=== PATIENT | male | born 1975 | race Caucasian/White ===

== ENCOUNTER 2020-09-27 06:58 | Emergency (ER) | payer SELFPAY ==
[2020-09-27 06:55] VITALS: BP 140/85; TEMP 35.8
--- NOTE | 2020-09-27 07:29 | ED.CPR ---
HPI - CPR General Chief Complaint: Cardiac Arrest/CPR Stated Complaint: cardiac arrest Time Seen by Provider: 09/27/20 07:20 Source: family () and EMS Mode of arrival: EMS Limitations: clinical condition History of Present Illness HPI narrative: This patient is a 45 male with history of DM, leukemia who presents in cardiac arrest. His states she woke up at approximately 6:13 am this morning to find patient gasping for air. She reports he seems to shake his leg once and she asked if she should call 911. She states he shook his head no and then he was shaking again and he gasped for air again. He became unresponsive so she called 911. She started CPR. On EMS arrival, patient was found to be in VFib and he was shocked once and then he was in PEA. On my arrival patient, I took over care of patient. It was reported patient had received 4 doses of epi by EMS and he had received 1 dose of epi in ER. He was intubated by EMS in the field. complaint: stopped breathing Onset (ago): minute(s) (45) Time: 06:13 Timing confirmed by: spouse Place: home Bystander CPR performed: Yes Shock advised: Yes Number of shocks delivered: 1 Initial findings in the field: no pulse and VTACH/VFIB ROSC in the field: No Associated injuries: No Known history of: cancer (leukemia) Treatments prior to arrival: intubation, BMV, chest compressions, defibrillated shocks # (1) and epinephrine mgs # (4) Related Data Home Medications Medication Instructions Recorded Confirmed Unable to Obtain Home Medications 09/27/20 09/27/20 Allergies Allergy/AdvReac Type Severity Reaction Status Date / Time No Known Allergies Allergy Verified 09/27/20 07:46 Review of Systems Review of Systems: ROS unobtainable: Yes unobtainable due to endotracheal tube and unobtainable due to medical condition PMFSH Past Medical History Medical History (Updated 09/27/20 @ 17:53 by Farhana Brink MD) Diabetes mellitus Surgical History Surgical History (Updated 10/28/19 @ 07:27 by Maritza Florez MD) History of cataract extraction History of hernia repair History of tonsillectomy History of vitrectomy Social History Social History (Updated 10/28/19 @ 07:27 by Maritza Florez MD) Smoking status: Never smoker Gender identity (if verbalized by the patient): Male Exam Const: General: ill appearing Other: unresponsive Eyes: Pupils: Dilated pupils, Fixed pupils and Pupils not reactive Neck: Other: cyanotic from neck up to face Resp: Auscultation: clear to auscultation bilaterally Other: intubated Cardio: Other: pulseless GI: GI Palp: Yes Soft to palpation Skin: General skin exam: pallor Neuro: Other: no movement Extrem: General: no pedal edema Course Reevaluation(s) Reevaluation #1: Please see code sheet. Time of is 7:08 am. Patient's was at bedside during resuscitation. After my arrival, patient received 2 epi, 1 bicarb and 1 calcium IV push. Resuscitation was unsuccessful. I discussed with patient had a down time of 50 minutes and he was in PEA . CPR discontinued and he had no pulse and no cardiac activity on bedside ultrasound. within seconds he was asystole. Date: 09/27/20 Time: 07:42 Vital Signs Vital signs: Vital Signs Temperature 96.5 F L 09/27/20 06:55 Blood Pressure 140/85 09/27/20 06:55 Temperature 96.5 F L 09/27/20 06:55 Blood Pressure 140/85 09/27/20 06:55 Critical Care Time Critical Care Time Critical Care Time: No Discharge Plan Discharge Clinical Impression: Cardiac arrest Patient Disposition: Condition: Prescriptions: No Action Unable to Obtain Home Medications RF: 0 Follow-up/Referrals: UNKNOWN,DOCTOR [Primary Care Provider] - Quality Merna Coma Scale Eyes: No Response Verbal: No Response Motor: No Response Merna Coma Total Score: 3
--- NOTE | 2020-09-27 07:37 | PC.NURSE ---
[id number] Amy called [facility] at this time. Patient was deemed not a candidate for organ donation. [id number]o from [facility] office called at this time. Stated I'll leave [place] and head over that way to talk with the family .
--- NOTE | 2020-09-27 08:10 | PC.NURSE ---
[employer] here at this time.
--- NOTE | 2020-09-27 09:21 | PC.NURSE ---
[facility] contacted at [phone]. Stated Please call me whenever you want me to leaf size picker the body .
--- NOTE | 2020-09-27 09:32 | PC.NURSE ---
All tubes, IV's, and monitoring removed from patient at this time
--- NOTE | 2020-09-27 10:40 | PC.NURSE ---
[facility] home arrived at this time. Patient was then taken per the home. all proper documentation received at this time.
== END 2020-09-27 10:45 | disposition expired ==
PROVIDERS: Emergency Provider General Practice
DX: I46.9 Cardiac arrest, cause unspecified (principal); E11.9 Type 2 diabetes mellitus without complications; Z98.49 Cataract extraction status, unspecified eye; Z85.6 Personal history of leukemia
CPT/HCPCS: 36680; 92950; 99285; J0171